=== PATIENT | female | born 1980 | race Caucasian/White ===

== ENCOUNTER 2025-02-04 12:42 | Emergency (ER) | payer OTHER ==
[~2025-02-04] VITALS: Ht 170.2 cm; Wt 85.7 kg
[2025-02-04 13:28] LABS: Source, Urine Clean Catch
[2025-02-04 13:30] LABS: Bilirubin, Urine Neg (Neg); Color, Urine Yellow (P-Yellow); Glucose Qualitative, Urine Neg (Neg); Ketones, Urine 2+ (Neg); Leukocyte Esterase, Urine 3+ (Neg); Protein, Urine 2+ (Neg); Specific Gravity, Urine 1.015 (1.003-1.022); Urobilinogen, Urine NORM (Normal)
[2025-02-04 13:42] LABS: White Blood Cells, Urine 50-100 /hpf (0-5)
[2025-02-04] MEDS ORDERED: CEPH500 PO (14:28)
== END 2025-02-04 14:38 | disposition home or self-care (01) ==
LOC: ER 12:42
PROVIDERS: Student in an Organized Health Care Education/Training Program
DX: N39.0 Urinary tract infection, site not specified (principal); I10 Essential (primary) hypertension; Z88.2 Allergy status to sulfonamides
CPT/HCPCS: 81001; 87077; 87086; 87186; 99283; A9270